=== PATIENT | male | born 1965 | race Hispanic/Latino ===

== ENCOUNTER 2016-04-12 08:28 | Day surgery (SDC) | payer OTHER ==
[2016-04-12 09:46] LABS: Blood Urea Nitrogen 20 mg/dL (9-20)
[2016-04-12] MEDS ORDERED: NACL ONE (10:01)
[2016-04-12] MEDS ORDERED: ATROPINE 0.1% (CARDIAC) ONE (10:04)
[2016-04-12] MEDS ORDERED: NITROSTAT SL ONE ×2 (10:05→10:30)
[2016-04-12 10:45] VITALS: BP 124/68
--- NOTE | 2016-04-12 13:40 | Cat Scan Report ---
LIMITED CT OF THE CHEST PER CT CORONARY ANGIOGRAPHY PROTOCOL: Limited CT of the chest per CT coronary angiography protocol is submitted. The cardiac portion of the exam has been previously interpreted by the [employer]. The included portions of the lungs appear clear without evidence for nodule, mass or infiltrate. The included pleural spaces are clear. No mediastinal or hilar adenopathy is evident. Included upper abdomen and solid abdominal organs are grossly within normal limits. IMPRESSION: Normal limited CT of the chest as noted.
--- NOTE | 2016-04-13 11:52 | Procedure Note ---
[address] INDICATION: Persistent chest pain despite a previously normal stress test. ORDERING PHYSICIAN: Jose C Alberto MD DESCRIPTION OF PROCEDURE: After obtaining written consent, the patient was brought to the radiology suite. The patient received 0.4 mg of sublingual nitroglycerin for coronary vasodilation. A 100 mL of Omnipaque contrast was injected for coronary opacification. No complications occurred during the procedure. A 3D acquisition was obtained. FINDINGS: 1. The quality of the scan is excellent. 2. The calcium score is zero indicating the absence of atherosclerotic calcified coronary artery disease. 3. This is a right dominant circulation. 4. The left main is angiographically normal. 5. The left anterior descending artery is angiographically normal. The left anterior descending artery gives origin to a moderate size first and second diagonal arteries. No flow limiting lesions are noted within the diagonal arteries. 6. The left circumflex artery appears angiographically normal. 7. The ramus intermedius or the high obtuse marginal is a large caliber vessel that is angiographically normal. 8. The right coronary artery originates from the right coronary cusp. The right coronary artery is a dominant vessel. The right coronary artery is angiographically normal. 9. The aortic valve is trileaflet. The ascending aorta is normal in caliber. The descending thoracic aorta is also normal in caliber. 10. The main pulmonary artery is normal in caliber. 11. Four pulmonary veins are visualized entering the left atrium. No filling defect is noted in the left atrial appendage. There is no evidence of a pericardial effusion. The left ventricle is normal. 12. The left ventricle is normal in size. The left ventricular ejection fraction is measured at 53%. There is normal wall motion. IMPRESSION: 1. Angiographically normal coronary circulation. 2. The calcium score is zero indicating the absence of atherosclerotic calcified coronary artery disease and a very low cardiovascular disease risk. 3. Normal left ventricular size and systolic function with an ejection fraction measured at 53%, normal wall motion. 4. The visualized segments of the aorta, pulmonary artery, pulmonary veins are all within normal limits. JOB# [id number] ROC/BENI
== END 2016-04-12 10:50 | disposition home or self-care (01) ==
LOC: OPU 08:28 → EDSTATUS 08:45 → OPU 10:50
PROVIDERS: ATTEND Internal Medicine
DX: R07.9 Chest pain, unspecified (principal)
CPT/HCPCS: 36415; 75574; 82565; 84520; Q9967; J0461